=== PATIENT | female | born 1995 | race Two or more races ===

== ENCOUNTER 2018-06-24 20:21 | Emergency (ER) | payer OTHER ==
[2018-06-24 20:34] VITALS: BP 136/104
[2018-06-24] MEDS ORDERED: IBUPROFEN 600 MG TAB PO ONE (20:42)
--- NOTE | 2018-06-24 20:51 | EDPHY ---
General Time Seen by Provider: 06/24/18 20:49 Narrative: CHIEF COMPLAINT: Bilateral wrist pain, injury HISTORY OF PRESENT ILLNESS: Patient presents by private vehicle with complaints of wrist pain after injury. 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 Several days ago she was trying to stop a fight between 2 dogs. She grabbed the dogs by their collars, and feels that she "was yanked by the dogs." She states that she thinks she sprained her wrist. Over the past few days he has had increasing pain with any kind of movement or use. No numbness or tingling. No weakness. Improved at rest. Some improvement with ibuprofen. No complete resolution. No injury elsewhere. No laceration or puncture. DOMINANT EXTREMITY: Right-hand dominant ESTABLISHED ORTHOPEDIST: None REVIEW OF SYSTEMS: Ten systems reviewed and are negative unless otherwise noted in the HPI PAST MEDICAL HISTORY: Uncomplicated PAST SURGICAL HISTORY: No surgical SOCIAL HISTORY: Occasional tobacco use. Lives and works here independently FAMILY HISTORY: Noncontributory EXAMINATION: General Appearance: Alert, no distress Cardiovascular: Symmetric radial pulses. Brisk cap in fingers of both hands. Neurological: A&O, light and 2 point sensory symmetric, news department intern and interossei strength symmetric Skin: Warm and dry, no rash. No petechiae. No purpura. No puncture Extremities: Minimal soft tissue tenderness of the wrist bilaterally. There is no bony tenderness in the snuffbox of either wrist. No bony tenderness of the elbows, radial heads or fingers. Full extension of the elbows without difficulty. Soft compartments of both upper extremities without evidence of DVT or compartment syndrome. Psychiatric: Mood and affect normal DIFFERENTIAL DIAGNOSES: Including but not limited to sprain, strain, fracture, dislocation, subluxation MDM: 8:50 p.m. Acute sprain to the wrist and fingers of both hands with no bony tenderness at any location of either wrist or fingers. Specifically, she has no complaints of pain or any tenderness in the snuffbox regions of either wrist. Injury happened nearly 1 week ago I do feel that she could be treated conservatively with velcro splints, anti-inflammatories, ice and elevation. We discussed follow up with [facility] for definitive care. I have answered all her questions. She has been placed in splint for supportive care. She is comfortable this plan and discharged in stable condition. SUPERVISION: This patient was independently evaluated without direct involvement of or examination by the attending physician. - History Smoking Status: Former smoker - Objective Vital Signs: Initial Vital Signs Temperature (C) 98.6 F 06/24/18 20:32 Heart Rate 109 H 06/24/18 20:32 Respiratory Rate 16 06/24/18 20:32 Blood Pressure 136/104 H 06/24/18 20:32 O2 Sat (%) 97 06/24/18 20:32 O2 Delivery Mode Room Air Allergies/Adverse Reactions: No Known Allergies Allergy (Verified 06/24/18 20:34) Home Medications: Medication Instructions Recorded NK [No Known Home Meds] 06/24/18 Medications Given: Discontinued Medications Ibuprofen (Motrin) 600 mg PO EDNOW ONE Stop: 06/24/18 20:43 Last Admin: 06/24/18 20:45 Dose: 600 mg Departure - Departure Disposition: Home, Routine, Self-Care Clinical Impression: Sprain of right wrist Qualifiers: Encounter type: initial encounter Qualified Code(s): S63.501A - Unspecified sprain of right wrist, initial encounter Sprain of left wrist Qualifiers: Encounter type: initial encounter Qualified Code(s): S63.502A - Unspecified sprain of left wrist, initial encounter Condition: Good Instructions: Finger Sprain (ED), Wrist Sprain (ED) Additional Instructions: 1. Medications as discussed as needed, including ibuprofen 600mg every 8 hours as needed. Do not take in conjunction with anticoagulants or other NSAIDs 2. Follow up with Orthopedics for definitive care 3. Rest, ice and elevation often. 4. ED precautions as discussed for worsening pain, redness, fever, changes in range of motion, changes in sensation Referrals: Darnell Brown MD [Medical Doctor] - As per Instructions Stand Alone Forms: Work Comp Follow Up
== END 2018-06-24 21:04 | disposition home or self-care (01) ==
DX: S63.501A Unspecified sprain of right wrist, initial encounter (principal); S63.502A Unspecified sprain of left wrist, initial encounter; Z87.891 Personal history of nicotine dependence; W54.8XXA Other contact with dog, initial encounter; Y99.0 Civilian activity done for income or pay; Y92.89 Other specified places as the place of occurrence of the external cause; Y93.9 Activity, unspecified
CPT/HCPCS: L3807